=== PATIENT | male | born 1980 | race Caucasian/White ===

== ENCOUNTER 2017-05-25 08:03 | Observation (INO) | payer SELFPAY ==
[~2017-05-25] VITALS: Ht 172.7 cm; Wt 78.0 kg
[~2017-05-25 08:03] MED LIST: HYDR1CRE EX
[2017-05-25 08:07] VITALS: BP 142/102; PULSE 74; RESP 22; TEMP 98.9
[2017-05-25] MEDS ORDERED: LORazepam 2 MG/ML VIAL ONE (08:14)
[2017-05-25] MEDS ORDERED: THIAMINE HCL 200 MG/2 ML VIAL IM ONE (08:15)
[2017-05-25] MEDS ORDERED: SODIUM CHLORIDE 0.9% FLUSH 10 ML FLUSH IVF PRN (08:15)
[2017-05-25] MEDS ORDERED: LORazepam 2 MG/ML VIAL IV PUSH ONE (08:15)
[2017-05-25 08:27] LABS: BASOPHIL % 0.4 % (0.0-2.0); EOSINOPHIL # 0.1 TH/MM3 (0-0.4); EOSINOPHIL % 1.2 % (0.0-4.0); HEMATOCRIT 45.1 % (39.0-51.0); HEMOGLOBIN 15.7 GM/DL (13.0-17.0); LYMPH % 29.6 % (9.0-44.0); LYMPHOCYTE # 1.8 TH/MM3 (1.0-4.8); MEAN CELL VOLUME 100.2 FL (80.0-100.0); MEAN CORPUSCULAR HGB CONC 34.9 % (32.0-36.0); MEAN PLATELET VOLUME 10.2 FL (7.0-11.0); MONO % 19.1 % (0.0-8.0); MONOCYTE # 1.1 TH/MM3 (0-0.9); NEUT % 49.7 % (16.0-70.0); PLATELET COUNT 114 TH/MM3 (150-450); RED CELL DISTRIBUTION WIDTH 13.1 % (11.6-17.2)
--- NOTE | 2017-05-25 08:38 | RADRPT ---
EXAM DATE/TIME: 05/25/2017 08:26 [place] COMPARISON: No previous studies available for comparison. INDICATIONS : Seizures RADIATION DOSE: 35.98 CTDIvol (mGy) MEDICAL HISTORY : Asthma SURGICAL HISTORY : None. ENCOUNTER: Initial ACUITY: 1 day PAIN SCALE: Non-responsive LOCATION: cranial TECHNIQUE: Multiple contiguous axial images were obtained of the head. Using automated exposure control and adj ustment of the mA and/or kV according to patient size, radiation dose was kept as low as reasonably a chievable to obtain optimal diagnostic quality images. DICOM format image data is available electro nically for review and comparison. FINDINGS: CEREBRUM: The ventricles are normal for age. No evidence of midline shift, mass lesion, hemorrhage or acute in farction. No extra-axial fluid collections are seen. POSTERIOR FOSSA: The cerebellum and brainstem are intact. The 4th ventricle is midline. The cerebellopontine angle i s unremarkable. EXTRACRANIAL: The visualized portion of the orbits is intact. SKULL: The calvaria is intact. No evidence of skull fracture. CONCLUSION: Normal examination. Rickie See MD on May 25, 2017 at 8:34 Board Certified Radiologist. This report was verified electronically.
--- NOTE | 2017-05-25 08:47 | PD ---
HPI Chief Complaint: Seizure Time Seen by Provider: 08:04 Travel History International Travel<30 days: No Contact w/Intl Traveler<30days: No Traveled to known affect area: No History of Present Illness HPI 37-year-old male who presents as an ERT from the floor after he had a witnessed tonoclonic seizure. According to the patient he was visiting, he apparently was talking with her when he fell [place] and struck his head and started seizing. Patient denies any history of seizure disorder. The patient he was visiting reports daily alcohol use. Patient reports that he last drank yesterday. There is no reported head pain per him. He knows he is at the hospital, the month and the year. He does appear to be slightly postictal. PFSH Past Medical History Asthma: Yes ?: Not Social History Alcohol Use: No Tobacco Use: Yes Substance Use: No Allergies-Medications (Allergen,Severity, Reaction): Coded Allergies: No Known Allergies (Unverified Allergy, Unknown, 05/25/17) Reported Meds & Prescriptions Reported Meds & Active Scripts Active Hydrocortisone 1 % Cre 1 % EX Q12HR PRN Review of Systems Except as stated in HPI: all other systems reviewed are Neg General / Constitutional: No: Fever, Chills HENT: No: Headaches, Neck Pain (denies) Cardiovascular: No: Chest Pain or Discomfort, Palpitations Respiratory: No: Cough, Shortness of Breath Gastrointestinal: No: Nausea, Vomiting, Abdominal Pain Genitourinary: No: Incontinence, Flank Pain Musculoskeletal: No: Weakness, Pain Neurologic: Positive: Seizures, No: Weakness, Dizziness, Headache (denies), Incontinence Psychiatric: Positive: Substance Abuse (reported history of daily alcohol use. Patient reports he last drank yesterday) Physical Exam Narrative GENERAL: Well developed well-nourished male in no acute respiratory distress. SKIN: Focused skin assessment warm/dry. HEAD: Atraumatic. Normocephalic. EYES: Pupils equal and round. No scleral icterus. No injection or drainage. ENT: No nasal bleeding or discharge. Mucous membranes pink and moist. There is dried blood noted in his mouth and a small cut to his tongue. There is no active bleeding at this time. NECK: Trachea midline. Supple. CARDIOVASCULAR: Regular rate and rhythm. No murmur appreciated. RESPIRATORY: No accessory muscle use. Clear to auscultation. Breath sounds equal bilaterally. GASTROINTESTINAL: Abdomen soft, non-tender, nondistended. Hepatic and splenic margins not palpable. MUSCULOSKELETAL: No obvious deformities. No clubbing. No cyanosis. No edema. NEUROLOGICAL: Awake and alert. No obvious cranial nerve deficits. Motor grossly within normal limits. Normal speech. PSYCHIATRIC: Appropriate mood and affect; insight and judgment normal. Data Data Last Documented VS Vital Signs Date Time Temp Pulse Resp B/P (MAP) Pulse Ox O2 Delivery O2 Flow Rate FiO2 05/25/17 08:07 98.9 74 22 142/102 (115) Orders Orders Complete Blood Count With Diff (05/25/17 08:05) Alcohol (Ethanol) (05/25/17 08:05) Drug Screen, Random Urine (05/25/17 08:05) Ct Brain W/O Iv Contrast(Rout) (05/25/17 ) Blood Glucose (05/25/17 08:05) Ecg Monitoring (05/25/17 08:05) Iv Access Insert/Monitor (05/25/17 08:05) Oximetry (05/25/17 08:05) Comprehensive Metabolic Panel (05/25/17 08:05) Sodium Chloride 0.9% Flush (Ns Flush) (05/25/17 08:15) Thiamine Inj (Thiamine Inj) (05/25/17 08:15) Lorazepam Inj (Ativan Inj) (05/25/17 08:15) Lorazepam Inj (Ativan Inj) (05/25/17 08:14) Phenytoin Inj (Dilantin Inj) (05/25/17 09:30) Admit Order (Ed Use Only) (05/25/17 10:13) Labs Laboratory Tests Test 05/25/17 08:15 White Blood Count 6.0 TH/MM3 Red Blood Count 4.50 MIL/MM3 Hemoglobin 15.7 GM/DL Hematocrit 45.1 % Mean Corpuscular Volume 100.2 FL Mean Corpuscular Hemoglobin 35.0 PG Mean Corpuscular Hemoglobin Concent 34.9 % Red Cell Distribution Width 13.1 % Platelet Count 114 TH/MM3 Mean Platelet Volume 10.2 FL Neutrophils (%) (Auto) 49.7 % Lymphocytes (%) (Auto) 29.6 % Monocytes (%) (Auto) 19.1 % Eosinophils (%) (Auto) 1.2 % Basophils (%) (Auto) 0.4 % Neutrophils # (Auto) 3.0 TH/MM3 Lymphocytes # (Auto) 1.8 TH/MM3 Monocytes # (Auto) 1.1 TH/MM3 Eosinophils # (Auto) 0.1 TH/MM3 Basophils # (Auto) 0.0 TH/MM3 CBC Comment DIFF FINAL Differential Comment Blood Urea Nitrogen 9 MG/DL Creatinine 1.09 MG/DL Random Glucose 116 MG/DL Total Protein 8.0 GM/DL Albumin 3.6 GM/DL Calcium Level 9.1 MG/DL Alkaline Phosphatase 73 U/L Aspartate Amino Transf (AST/SGOT) 115 U/L Alanine Aminotransferase (ALT/SGPT) 141 U/L Total Bilirubin 0.9 MG/DL Sodium Level 137 MEQ/L Potassium Level 3.8 MEQ/L Chloride Level 103 MEQ/L Carbon Dioxide Level 18.5 MEQ/L Anion Gap 16 MEQ/L Estimat Glomerular Filtration Rate 77 ML/MIN Ethyl Alcohol Level LESS THAN 3 MG/DL MDM Medical Decision Making Medical Screen Exam Complete: Yes Emergency Medical Condition: Yes Differential Diagnosis Medic brain injury versus alcohol withdrawal seizure versus metabolic derangement Narrative Course 37-year-old male presents from one of the medical floors after he had a witnessed seizure. There is no reported seizure history. The patient does have a history of alcohol use/abuse according to the patient he was visiting. He had another witnessed seizure here in the emergency department. He was administered 2 mg of Ativan. He'll be loaded with 1 g of phenytoin. Head CT was negative for acute process. This was ordered because there was report that he fell and struck his head. There is a call out to the admitting service. Diagnosis Primary Impression: Seizure Additional Impression: reported history of alcohol abuse Admitting Information Admitting Physician Requests: Observation Tyshawn Braxton MD May 25, 2017 08:47
[2017-05-25 08:50] LABS: ALKALINE PHOSPHATASE 73 U/L (45-117); ALT (GPT) 141 U/L (12-78); TOTAL BILIRUBIN ADULT 0.9 MG/DL (0.2-1.0)
[2017-05-25 09:00] LABS: ALBUMIN 3.6 GM/DL (3.4-5.0); AST (GOT) 115 U/L (15-37); BICARBONATE 18.5 MEQ/L (21.0-32.0); BLOOD UREA NITROGEN 9 MG/DL (7-18); CALCIUM 9.1 MG/DL (8.5-10.1); CHLORIDE 103 MEQ/L (98-107); CREATININE 1.09 MG/DL (0.60-1.30); GLOMERULAR FILTRATION RATE 77 ML/MIN (>89); GLUCOSE,RANDOM 116 MG/DL (74-106); SODIUM (NA) 137 MEQ/L (136-145)
[2017-05-25] MEDS ORDERED: PHENYTOIN INJ 1,000 MG in SODIUM CHLORIDE 0.9% INJ 100 ML IV ONE (09:30)
[2017-05-25] MEDS ORDERED: LORazepam 1 MG TAB PO PRN (10:15)
[2017-05-25] MEDS ORDERED: LORazepam 2 MG TAB PO PRN (10:15)
[2017-05-25] MEDS ORDERED: FLUMAZENIL 0.5 MG/5 ML VIAL IV PUSH PRN (10:15)
[2017-05-25] MEDS ORDERED: SODIUM CHLORIDE 0.9% FLUSH 10 ML FLUSH IV FLUSH PRN (10:15)
[2017-05-25] MEDS ORDERED: LORazepam 2 MG/ML VIAL IV PUSH PRN ×4 (10:15)
[2017-05-25 10:55] VITALS: BP 123/72; PULSE 67; RESP 14; O2SAT 97
[2017-05-25] MEDS ORDERED: SODIUM CHLOR 0.9% 1000 ML INJ 1,000 ML IV SCH (11:00)
[2017-05-25 11:08] LABS: MAGNESIUM 2.2 MG/DL (1.5-2.5)
[2017-05-25 11:19] LABS: INTERNATIONAL NORMALIZED RATIO 0.9 RATIO; PROTHROMBIN TIME - PATIENT 9.3 SEC (9.8-11.6)
[2017-05-25 11:40] VITALS: BP 110/75; PULSE 98; RESP 18; O2SAT 97
[2017-05-25] MEDS ORDERED: SODIUM CHLORIDE 0.9% FLUSH 10 ML FLUSH IV FLUSH SCH (21:00)
--- NOTE | 2017-05-25 22:29 | HHI.HP ---
HPI Service [facility] Primary Care Physician No Primary Care Physician Admission Diagnosis new onset seizure, reported alcohol abuse by history Diagnoses: Travel History International Travel<30 Days: No Contact w/Intl Traveler <30 Da: No Traveled to Known Affected Are: No History of Present Illness Patient seen and examined this morning around 10:30 AM. Patient presented with suspected seizure, with observed seizure in the ER.. Patient has no recollection from last night until waking up in the ER today. Patient does have a recent bloody nose, is unsure where that this started, however appears to be resolved. He is alert and oriented 3. He denies any history of alcohol withdrawals, denies any history of seizure. He does report feeling a little shaky. He agrees to stay for further monitoring and workup. Patient denies any stimulant use. Denies any fevers, chills, chest pain, shortness breath, nausea, vomiting. Unfortunately I was informed by nursing [id number] that patient left AGAINST MEDICAL ADVICE. Review of Systems Except as stated in HPI: all other systems reviewed are Neg Past Family Social History Past Medical History Patient denies any past medical history. Past Surgical History Patient denies any past surgical history. Reported Medications patient denies taking any medications Allergies: Coded Allergies: No Known Allergies (Unverified Allergy, Unknown, 05/25/17) Family History Family history reviewed with the patient and found to be currently noncontributory. Social History Patient smokes cigarettes, 1 pack per day for the past 10 years. Patient reports drinking on average 2 beers per day. Denies any history of alcohol withdrawal Patient denies any illicit drugs, however marijuana is on drug screen. Physical Exam Vital Signs Vital Signs Date Time Temp Pulse Resp B/P (MAP) Pulse Ox O2 Delivery O2 Flow Rate FiO2 05/25/17 13:20 05/25/17 11:40 98 18 110/75 (87) 97 Room Air 05/25/17 10:55 67 14 123/72 (89) 97 Room Air 05/25/17 08:07 98.9 74 22 142/102 (115) Physical Exam GENERAL: This is a well-nourished, well-developed patient, in no apparent distress.alert and oriented 3. SKIN: No rashes, ecchymoses or lesions. Cool and dry. HEAD: Atraumatic. Normocephalic. No temporal or scalp tenderness. EYES: Pupils equal round and reactive. Extraocular motions intact. No scleral icterus. No injection or drainage. ENT: Nose without with recent dried blood. Without purulent drainage or septal hematoma. Throat without erythema, tonsillar hypertrophy or exudate. Uvula midline. Airway patent. NECK: Trachea midline. No JVD or lymphadenopathy. Supple, nontender, no meningeal signs. CARDIOVASCULAR: Regular rate and rhythm without murmurs, gallops, or rubs. RESPIRATORY: Clear to auscultation. Breath sounds equal bilaterally. No wheezes , rales, or rhonchi. GASTROINTESTINAL: Abdomen soft, non-tender, nondistended. No hepato-splenomegaly , or palpable masses. No guarding. MUSCULOSKELETAL: Extremities without clubbing, cyanosis, or edema. No joint tenderness, effusion, or edema noted. No calf tenderness. Negative Homans sign bilaterally. NEUROLOGICAL: Awake and alert. Cranial nerves II through XII intact. Motor and sensory grossly within normal limits. Five out of 5 muscle strength in all muscle groups. Normal speech. Laboratory Laboratory Tests Test 05/25/17 08:15 05/25/17 10:30 05/25/17 10:50 White Blood Count 6.0 Red Blood Count 4.50 Hemoglobin 15.7 Hematocrit 45.1 Mean Corpuscular Volume 100.2 Mean Corpuscular Hemoglobin 35.0 Mean Corpuscular Hemoglobin Concent 34.9 Red Cell Distribution Width 13.1 Platelet Count 114 Mean Platelet Volume 10.2 Neutrophils (%) (Auto) 49.7 Lymphocytes (%) (Auto) 29.6 Monocytes (%) (Auto) 19.1 Eosinophils (%) (Auto) 1.2 Basophils (%) (Auto) 0.4 Neutrophils # (Auto) 3.0 Lymphocytes # (Auto) 1.8 Monocytes # (Auto) 1.1 Eosinophils # (Auto) 0.1 Basophils # (Auto) 0.0 CBC Comment DIFF FINAL Differential Comment Blood Urea Nitrogen 9 Creatinine 1.09 Random Glucose 116 Total Protein 8.0 Albumin 3.6 Calcium Level 9.1 Alkaline Phosphatase 73 Aspartate Amino Transf (AST/SGOT) 115 Alanine Aminotransferase (ALT/SGPT) 141 Total Bilirubin 0.9 Sodium Level 137 Potassium Level 3.8 Chloride Level 103 Carbon Dioxide Level 18.5 Anion Gap 16 Estimat Glomerular Filtration Rate 77 Magnesium Level 2.2 Total Creatine Kinase 120 Ethyl Alcohol Level LESS THAN 3 Prothrombin Time 9.3 Prothromb Time International Ratio 0.9 Urine Opiates Screen NEG Urine Barbiturates Screen NEG Urine Amphetamines Screen NEG Urine Benzodiazepines Screen NEG Urine Cocaine Screen NEG Urine Cannabinoids Screen POS Result Diagram: 05/25/1781405/25/17814 Caprini VTE Risk Assessment Caprini VTE Risk Assessment: No/Low Risk (score <= 1) Caprini Risk Assessment Model Point Value = 1 Point Value = 2 Point Value = 3 Point Value = 5 Age 41-60 Minor surgery BMI > 25 kg/m2 Swollen legs Varicose veins or History of unexplained or recurrent spontaneous Oral contraceptives or hormone replacement Sepsis (< 1 month) Serious lung disease, including pneumonia (< 1 month) Abnormal pulmonary function Acute myocardial infarction Congestive heart failure (< 1 month) History of inflammatory bowel disease Medical patient at bed rest Age 61-74 Arthroscopic surgery Major open surgery (> 45 min) Laparoscopic surgery (> 45 min) Malignancy Confined to bed (> 72 hours) Immobilizing plaster cast Central venous access Age >= 75 History of VTE Family history of VTE Factor V Leiden Prothrombin [id number] Lupus anticoagulant Anticardiolipin antibodies Elevated serum homocysteine Heparin-induced thrombocytopenia Other congenital or acquired thrombophilia Stroke (< 1 month) Elective arthroplasty Hip, pelvis, or leg fracture Acute spinal cord injury (< 1 month) Prophylaxis Regimen Total Risk Factor Score Risk Level Prophylaxis Regimen 0-1 Low Early ambulation 2 Moderate Order ONE of the following: *Sequential Compression Device (SCD) *Heparin 5000 units SQ BID 3-4 Higher Order ONE of the following medications: *Heparin 5000 units SQ TID *Enoxaparin/Lovenox 40 mg SQ daily (WT < 150 kg, CrCl > 30 mL/min) *Enoxaparin/Lovenox 30 mg SQ daily (WT < 150 kg, CrCl > 10-29 mL/min) *Enoxaparin/Lovenox 30 mg SQ BID (WT < 150 kg, CrCl > 30 mL/min) AND/OR *Sequential Compression Device (SCD) 5 or more Highest Order ONE of the following medications: *Heparin 5000 units SQ TID (Preferred with Epidurals) *Enoxaparin/Lovenox 40 mg SQ daily (WT < 150 kg, CrCl > 30 mL/min) *Enoxaparin/Lovenox 30 mg SQ daily (WT < 150 kg, CrCl > 10-29 mL/min) *Enoxaparin/Lovenox 30 mg SQ BID (WT < 150 kg, CrCl > 30 mL/min) AND *Sequential Compression Device (SCD) Assessment and Plan Assessment and Plan //New-onset seizure. //Suspected secondary to alcohol withdrawal. -Head CT with no acute findings. -Patient loaded phenytoin in the ER. Patient advised no driving until cleared by neurologist. -CIWA protocol ordered. //Metabolic acidosis. Likely secondary to seizure. Repeat labs ordered for this afternoon. Unfortunately patient left AGAINST MEDICAL ADVICE. //Elevated LFTs. This could be secondary to chronic alcoholism versus secondary to stress. //Tobaccoism. Patient counseled on cessation. //Marijuana use. Results were not back at the time of examination, this was not addressed. Discussed Condition With patient, nurse, ED physician. Avelino Vigil MD May 25, 2017 22:29
[2017-05-26] MEDS ORDERED: THIAMINE HCL 100 MG TAB PO SCH (09:00)
--- NOTE | 2017-05-26 14:27 | EKG ---
Date Performed: 05/25/2017 Time Performed: 08:08:10 PTAGE: 37 years EKG: Sinus rhythm NORMAL ECG NO PREVIOUS TRACING DOCTOR: Harper Gambino Interpretating Date/Time 05/26/2017 14:26:11
== END 2017-05-25 13:24 | disposition left against medical advice (07) ==
LOC: NEPE 08:03 → NEDA 10:15
PROVIDERS: ADMIT Internal Medicine; ATTEND Internal Medicine
DX: R56.9 Unspecified convulsions (principal); E87.2 Acidosis; R79.89 Other specified abnormal findings of blood chemistry; J45.909 Unspecified asthma, uncomplicated; F12.90 Cannabis use, unspecified, uncomplicated; F17.210 Nicotine dependence, cigarettes, uncomplicated; W19.XXXA Unspecified fall, initial encounter; W22.8XXA Striking against or struck by other objects, initial encounter
CPT/HCPCS: 70450; 80053; 80307; 82550; 83735; 85025; 85610; 93005; 96365; 96372; 96375; 99285; G0378; J1165; J2060; J3411; J7030